=== PATIENT | female | born 1990 | race Caucasian/White ===

== ENCOUNTER 2018-05-16 18:10 | Inpatient (IN) | payer MEDICAID, OTHER ==
[~2018-05-16] VITALS: Ht 157.5 cm; Wt 40.2 kg
[~2018-05-16 18:10] MED LIST: NALT50TA PO; SLEEP AID PO; THYR65TA6 PO
--- NOTE | 2018-05-16 18:10 | NUR ---
RIGHT ARM PAIN. DENIES FALL/INJURY. NAD NOTED. PT AAO X4, AMB WITH STEADY GAIT. RR EVEN AND UNLABORED. PENDING MD KONG.
[2018-05-16] MEDS ORDERED: KETOROLAC TROMETHAMINE INJ 30 MG/ML VIAL IV ONE (19:00)
[2018-05-16] MEDS ORDERED: KETOROLAC TROMETHAMINE INJ 30 MG/ML VIAL ONE (19:05)
--- NOTE | 2018-05-16 19:09 | NUR ---
PER ARMANDO MONTIEL WITH NO TEST, PT STATES NOT
--- NOTE | 2018-05-16 19:17 | NUR ---
MEDICATIONS GIVEN ORDERED. GRETEL 22G NOTED PRIOR TO ARRIVAL.
[2018-05-16 19:23] LABS: CALCIUM, SERUM 9.5 mg/dL (8.5-10.1); CREATININE 0.5 mg/dL (0.6-1.3); POTASSIUM 3.4 mmol/L (3.5-5.1)
[2018-05-16] MEDS ORDERED: NYST50002 PO (20:57)
[2018-05-16] MEDS ORDERED: CEFTRIAXONE 1 G in IV D5W 50 ML IV ONE (21:00)
--- NOTE | 2018-05-16 21:57 | NUR ---
report given to shira islas rn for continuity of care
[2018-05-16 22:20] VITALS: BP 115/65
[2018-05-16 22:30] VITALS: BP 115/65
--- NOTE | 2018-05-16 22:30 | NUR ---
MS TECHNOLOGY COORDINATOR INITIAL NOTES ADMIT PT FROM ER VIA WHEELCHAIR, ACCOMPANIED BY BIOPROCESSING MANUFACTURING TECHNICIAN. DX OF CELLULITIS. PT IS A/O X4 AMBULATORY WITH ROCEPHIN IVF BAG INFUSING AT THIS TIME. DENIES ANY PAIN OR ANY DISCOMFORT. SHE STATED SHE'S HER 2 DAYS AGO BUT DIFFERENT PROBLEM. AWARE HOW TO USED THE CALL LIGHT SYSTEM. KEPT HER WARM AND COMFORTABLE AT ALL TIMES. PLACE CALL LIGHT AT REACH. PT REQUESTED TO HAVE SLEEPING MEDICATION. WILL CONTINUE MONITORING.
[2018-05-16] MEDS ORDERED: ZOLPIDEM TARTRATE 5 MG TABLET PO PRN (23:30)
--- NOTE | 2018-05-16 23:55 | NUR ---
WELL DRILL OPERATOR ROTARY DRILL/NOTES GOT ORDERED FROM DR EVERETT , AMBIEN 5 MG PO GIVEN ORDERED. EDUCATE PT FOR POSSIBLE SIDE EFFECT. WILL CONTINUE MONITORING. PLACE CALL LIGHT AT REACH.
[2018-05-17] MEDS ORDERED: ONDANSETRON HCL/PF 4 MG/2 ML VIAL IVP PRN (00:30)
[2018-05-17] MEDS ORDERED: ACETAMINOPHEN 325 MG TABLET PO PRN (00:30)
[2018-05-17] MEDS ORDERED: HYDROCODONE/APAP 5/325MG 1 EACH TABLET PO PRN (00:30)
[2018-05-17] MEDS ORDERED: MAGNESIUM HYDROXIDE 30 ML UDC PO PRN (00:30)
[2018-05-17] MEDS ORDERED: MORPHINE SULFATE INJ 2 MG/ML DISP.SYRIN IV PRN (00:30)
[2018-05-17] MEDS ORDERED: IV PREMIX 0.45% NS + KCL 1,000 ML IV ONE (01:00)
[2018-05-17 01:48] LABS: HEMOGLOBIN 8.8 g/dL (11.5-14.8); RED BLOOD CELL COUNT(AUTO) 3.99 MIL/uL (4.0-5.2); WHITE BLOOD COUNT (AUTO) 10.3 K/uL (4.3-11.0)
[2018-05-17 01:49] LABS: BASOPHILS # (AUTO) 0.1 /CMM (0.0-0.2); BASOPHILS % (AUTO) 0.5 % (0.0-2.0); HEMATOCRIT 28 % (33-45); LYMPHOCYTES # (AUTO) 1.7 /CMM (0.8-4.8); LYMPHOCYTES % (AUTO) 16.7 % (20.0-44.0); MEAN CORPUSCULAR HEMOGLOBIN 22 PG (26.0-33.0); MEAN CORPUSCULAR HGB CONC 31 g/dl (31.0-36.0); MEAN CORPUSCULAR VOLUME 71 fL (82-100); MONOCYTES # (AUTO) 1.1 /CMM (0.1-1.30); NEUTROPHILS # (AUTO) 7.3 /CMM (1.8-8.9); NEUTROPHILS % (AUTO) 70.8 % (43.0-81.0); PLATELET COUNT (AUTO) 284 /CMM (150-450); RDW COEFFICIENT OF VARIATION 33.7 (11.5-15.0)
[2018-05-17 02:17] LABS: EOSINOPHILS % (MANUAL) 1 % (0-4); LYMPHOCYTES % (MANUAL) 19 % (16-48); MONOCYTES % (MANUAL) 9 % (0-11.0); NEUTROPHILS % (MANUAL) 71 (42-76)
[2018-05-17] MEDS ORDERED: PIPERACILLIN /TAZOBACTAM 3.375 G VIAL IV ONE (05:24)
[2018-05-17] MEDS: PIPERACILLIN /TAZOBACTAM 3.375 G in IV D5W 50 ML IV SCH ×3 (05:35→18:56)
--- NOTE | 2018-05-17 07:19 | NUR ---
MS SUPERVISOR STAGE CARPENTRY CLOSING NOTES PT AWAKE AND ALERT WITH IVF STILL INFUSING AT THIS TIME. SHE SLEPT WELL AND STABLE COLEEN THE NIGHT. ZOSYN IVP BAG DONE AND NO ADVERSE REACTION NOTED. KEPT HER WARM AND COMFORTABLE AT ALL TIMES. ENDORSE TO AM NURSE WHILE DOING ROUNDS AND INTRODUCE THE NURSE AT THE SAME TIME. PLACE CALL LIGHT AT REACH.
[2018-05-17] MEDS: PANTOPRAZOLE 40 MG TABLET.DR PO SCH (07:30)
--- NOTE | 2018-05-17 07:30 | NUR ---
MSRN NOTES. PT RECEIVED A&0X3, REQUESTING MORE SLEEP, PT TOLERATING ROOM AIR WITHOUT DISTRESS AND REPORTS MINOR DISCOMFORT TO R ELBOW AREA. PT WITH IVC INTACT AND OPERATIONAL WITH IVF PER RX. PT BED KIN LOWEST LOCKED POSITION WITH HANDRAILSX2 AND CALL MARTINEZ WITHIN REACH. PT BRIEFED ON TODAY'S POC AND IS WITHOUT CONCERN OR COMPLAINT AT THIS TIME.
[2018-05-17 08:00] VITALS: BP 109/59
[2018-05-17] MEDS ORDERED: NATURE THROID PO SCH (09:00)
[2018-05-17] MEDS ORDERED: VANCOMYCIN 1 GM in IV NS 0.9% 250 ML IV ONE (09:00)
[2018-05-17] MEDS ORDERED: FEE PK DOSING 1 MIN EA MC ONE (10:10)
[2018-05-17 10:17] LABS: ALBUMIN 3.4 g/dL (3.4-5.0); BILIRUBIN,TOTAL 0.6 mg/dL (0.2-1.0); CALCIUM, SERUM 8.8 mg/dL (8.5-10.1); CREATININE 0.5 mg/dL (0.6-1.3); MAGNESIUM 2.3 mg/dL (1.8-2.4); PHOSPHORUS 3.1 mg/dL (2.5-4.9); TOTAL PROTEIN, SERUM 7.2 g/dL (6.4-8.2)
[2018-05-17 10:26] LABS: BASOPHILS % (AUTO) 0.4 % (0.0-2.0); EOSINOPHILS % (AUTO) 0.7 % (0.0-6.0); HEMATOCRIT 30 % (33-45); HEMOGLOBIN 9.2 g/dL (11.5-14.8); LYMPHOCYTES % (AUTO) 13.9 % (20.0-44.0); MEAN CORPUSCULAR HEMOGLOBIN 22 PG (26.0-33.0); MEAN CORPUSCULAR HGB CONC 31 g/dl (31.0-36.0); MEAN CORPUSCULAR VOLUME 72 fL (82-100); MONOCYTES % (AUTO) 7.5 % (2.0-12.0); NEUTROPHILS % (AUTO) 77.5 % (43.0-81.0); PLATELET COUNT (AUTO) 288 /CMM (150-450); RDW COEFFICIENT OF VARIATION 33.9 (11.5-15.0); RED BLOOD CELL COUNT(AUTO) 4.17 MIL/uL (4.0-5.2); WHITE BLOOD COUNT (AUTO) 10.3 K/uL (4.3-11.0)
[2018-05-17 10:43] LABS: EOSINOPHILS % (MANUAL) 5 % (0-4); LYMPHOCYTES % (MANUAL) 8 % (16-48); MONOCYTES % (MANUAL) 4 % (0-11.0); NEUTROPHILS % (MANUAL) 83 (42-76)
[2018-05-17] MEDS ORDERED: NA PHOS,M-B/NA PHOS,DI-BA 1 EA ENEMA RC PRN (11:30)
[2018-05-17] MEDS ORDERED: MAGNESIUM CITRATE 296 ML BOTTLE PO ONE (11:30)
[2018-05-17] MEDS ORDERED: PEG 3350/NA SULF,BICARB,CL/KCL 4,000 ML BOTTLE PO ONE (12:00)
[2018-05-17 16:00] VITALS: BP 122/72
[2018-05-17] MEDS: VANCOMYCIN 500 MG in IV D5W 100 ML IV SCH (17:28)
--- NOTE | 2018-05-17 18:37 | NUR ---
MSRN NOTES. PT TOLERATING ROOM AIR AND REPORTS MINOR PAIN TO RIGHT ELBOW. PT WITH IVC AT L FA INTACT AND OPERATIONAL. CIRCUMFERENCE OF REDNESS AT PT'S R ELBOW PREVIOUSLY MARKED, REDNESS NOW EXCEEDING DEMARKATION. ENDORSED TO NIGHT NURSE TO PHOTOGRAPH PART OF ROUTINE FRIDAY PHOTOGRAPHY. PT WITH KEYLA IN PROCESS. PT WITH FAMILY AT BEDSIDE, BED IN LOWEST LOCKED POSITION WITH HANDRAILSX2 AND CALL MARTINEZ WITHIN REACH. ALL DAY NURSE DUTIES ATTENDED TO AND PT IS WITHOUT CONCERN OR COMPLAINT AT THIS TIME, WILL ENDORSE TO NIGHT NURSE.
--- NOTE | 2018-05-17 19:00 | NUR ---
MSRN NOTES. ENDORSED TO PT TO NIGHT NURSE, DURING BEDSIDE REPORT PT REPORTS INCREASED PAIN AND SPREADING OF REDNESS STARTING AT 1730. ELBOW IS WARM TO TOUCH. ELBOW IS ELEVATED. ICE PACKS TO BE APPLIED AND FOLLOW UP BY NIGHT NURSE.
--- NOTE | 2018-05-17 19:00 | NUR ---
RN OPENING NOTES PT AWAKE AND RESTING IN BED. FAMILY AT BEDSIDE. PER DAY SHIFT RN REDNESS AND SWELLING HAVE EXCEEDED THE MARKINGS ON HER ELBOW. WILL APPLY ICE PACKS AND CONTINUE TO MONITOR. PT HAS A LEFT FOREARM IV RUNNING 1/2NS WITH 20MEQ KCL @100ML/HR. PT TOLERATING WELL. PT CURRENTLY FINISHING GOLYTELY BOWEL PREP FOR COLONOSCOPY IN THE MORNING. CONSENTS FOR EGD AND COLONOSCOPY SIGNED AND IN CHART. SAFETY PRECAUTIONS IN PLACE, BED IN LOWEST LOCKED POSITION, X2 SIDERAILS UP. CALL LIGHT WITHIN REACH WILL CONTINUE TO MONITOR.
[2018-05-17 20:00] VITALS: BP 133/75
[2018-05-18] MEDS: PIPERACILLIN /TAZOBACTAM 3.375 G in IV D5W 50 ML IV SCH ×3 (00:46→11:50)
[2018-05-18] MEDS: VANCOMYCIN 500 MG in IV D5W 100 ML IV SCH (01:55)
--- NOTE | 2018-05-18 06:46 | NUR ---
RN CLOSING NOTES PT AWAKE AND RESTING IN BED. SWELLING AND REDNESS OF THE LEFT ARM HAS DECREASED SIGNIFICANTLY. NO LONGER OUTSIDE OF MARKINGS ON ARM. PT HAS A LEFT FOREARM IV RUNNING 1/2NS WITH 20MEQ KCL @100ML/HR. PT TOLERATING WELL. BOWEL PREP COMPLETE FOR COLONOSCOPY IN THE MORNING. CONSENTS FOR EGD AND COLONOSCOPY SIGNED AND IN CHART. SAFETY PRECAUTIONS IN PLACE, BED IN LOWEST LOCKED POSITION, X2 SIDERAILS UP. CALL LIGHT WITHIN REACH WILL ENDORSE TO DAY SHIFT NURSE FOR CONTINUITY OF CARE.
--- NOTE | 2018-05-18 07:20 | NUR ---
RN NOTES PATIENT A/OX4, NO DISTRESS NOTED, RIGHT ARM HAS DECREASED REDNESS AND SWELLING. PATIENT IS TRANSFERRED TO OR FOR EGD AND COLONOSCOPY.
[2018-05-18] MEDS: PANTOPRAZOLE 40 MG TABLET.DR PO SCH (07:30)
[2018-05-18 08:16] LABS: APPEARANCE,URINE CLEAR (CLEAR); BILIRUBIN,URINE NEGATIVE (NEGATIVE); BLOOD, URINE NEGATIVE Ery/uL (NEGATIVE); COLOR,URINE YELLOW (YELLOW); KETONES,URINE 1+ (NEGATIVE); LEUKOCYTE ESTERASE ,URINE NEGATIVE (NEGATIVE); NITRITE, URINE NEGATIVE (NEGATIVE); PROTEIN,URINE NEGATIVE (NEGATIVE); UGLUCOSE NEGATIVE (NEGATIVE); UROBILINOGEN,URINE 0.2 EU/dL (0.2)
[2018-05-18 08:32] LABS: BACTERIA,URINE None seen /HPF (None Seen); RBC,URINE NONE SEEN /HPF (0-2); SQUAMOUS EPITHELIAL CELL,UR Rare /HPF (None Seen); WBC,URINE 0-2 /HPF (0-3)
[2018-05-18 08:33] LABS: TRIPLE PHOSPHATE CRYSTAL,UR Few /HPF (None Seen)
[2018-05-18] MEDS ORDERED: SIMETHICONE SUSP 40 MG/0.6 ML BOTTLE ONE (08:36)
--- NOTE | 2018-05-18 09:33 | NUR ---
RN NOTES PATIENT CAME BACK FROM OR, VS STABLE, RECEIVED ORDERS FROM DR. ZUNIGA. PATIENT A/OX4, RESTING, PER PATIENT SHE DOESN'T WANT ANY FOOD RIGHT NOW. NEEDS ATTENDED, CALL LIGHT WITHIN REACH, WILL CONTINUE TO MONITOR.
[2018-05-18 10:40] LABS: CALCIUM, SERUM 8.9 mg/dL (8.5-10.1); CREATININE 0.5 mg/dL (0.6-1.3); MAGNESIUM 2.1 mg/dL (1.8-2.4); PHOSPHORUS 3.1 mg/dL (2.5-4.9); POTASSIUM 3.9 mmol/L (3.5-5.1)
[2018-05-18] MEDS ORDERED: VANCOMYCIN 0.75 GM in IV D5W 250 ML IV SCH (11:00)
[2018-05-18 11:04] LABS: HEMATOCRIT 31 % (33-45); HEMOGLOBIN 9.4 g/dL (11.5-14.8); MEAN CORPUSCULAR VOLUME 73 fL (82-100); WHITE BLOOD COUNT (AUTO) 9.8 K/uL (4.3-11.0)
[2018-05-18 11:05] LABS: MEAN CORPUSCULAR HEMOGLOBIN 22 PG (26.0-33.0); MEAN CORPUSCULAR HGB CONC 31 g/dl (31.0-36.0); PLATELET COUNT (AUTO) 273 /CMM (150-450); RDW COEFFICIENT OF VARIATION 36.4 (11.5-15.0)
[2018-05-18] MEDS ORDERED: SULF1TAB48 PO (11:26)
--- NOTE | 2018-05-18 13:45 | NUR ---
RN NOTES PATIENT A/OX3, VERBALLY RESPONSIVE, S/P COLONOSCOPY, IN STABLE CONDITION, VSS, NO DISTRESS NOTED. PATIENT RECEIVED DISCHARGE INSTRUCTIONS AND VERBALIZED UNDERSTANDING. RX OF BACTRIM GIVEN TO THE PATIENT, EXPLAINED S/SX OF ADVERSE REACTION, PATIENT INSTRUCTED TO TAKE PROBIOTIC/CULTURELLE OVER THE COUNTER AND A HIGH FIBER DIET, PATIENT VERBALIZED UNDERSTANDING. PIV REMOVED, APPLIED GAUZE AND TAPE. BELONGINGS RECONCILED AND COMPLETE. PATIENT ACCOMPANIED BY MOM TO HOME VIA PRIVATE CAR.
[2018-05-18 14:47] LABS: BAND % (MANUAL) 6 % (0.0-5.0); LYMPHOCYTES % (MANUAL) 8 % (16-48); MONOCYTES % (MANUAL) 6 % (0-11.0); NEUTROPHILS % (MANUAL) 80 (42-76)
== END 2018-05-18 13:55 | disposition home or self-care (01) | DRG 721 ==
LOC: ER 18:12 → MED 21:44
PROVIDERS: ADMIT Internal Medicine; ATTEND Internal Medicine
PROC: 0DBE8ZX Excision of Large Intestine, Via Natural or Artificial Opening Endoscopic, Diagnostic (ICD-10-PCS; principal; 2018-05-18 08:28)
DX: T80.29XA Infection following other infusion, transfusion and therapeutic injection, initial encounter (principal); E43 Unspecified severe protein-calorie malnutrition; L03.113 Cellulitis of right upper limb; K29.70 Gastritis, unspecified, without bleeding; K29.80 Duodenitis without bleeding; R62.7 Adult failure to thrive; D50.9 Iron deficiency anemia, unspecified; Z68.1 Body mass index [BMI] 19.9 or less, adult; K58.9 Irritable bowel syndrome, unspecified; I80.9 Phlebitis and thrombophlebitis of unspecified site; K63.89 Other specified diseases of intestine; K64.8 Other hemorrhoids; F50.9 Eating disorder, unspecified; Y83.8 Other surgical procedures as the cause of abnormal reaction of the patient, or of later complication, without mention of misadventure at the time of the procedure; Y92.009 Unspecified place in unspecified non-institutional (private) residence as the place of occurrence of the external cause
CPT/HCPCS: 36415; 73200-TC; 80048-TC; 80053-TC; 80202-TC; 81000-TC; 83735-TC; 84100-TC; 84703-TC; 85025-TC; 85652-TC; 87040-TC; 87081-TC; 88305-TC; 93971-TC; J0696; J1885; J2543; J3370; J3480; J3490; J7050; J7060; Z7610